=== PATIENT | male | born 1975 | race Caucasian/White ===

== ENCOUNTER → 2017-11-13 09:06 | Outpatient (CLI) | payer OTHER, SELFPAY ==
[2017-11-13 10:14] LABS: PSA,Total - Annual Screen 7.98 ng/mL (0.00-4.00)
== END ==
PROVIDERS: Visit Provider Urology
DX: Z12.5 Encounter for screening for malignant neoplasm of prostate (principal)
CPT/HCPCS: 36415; 84153; G0103

== ENCOUNTER → 2017-12-16 07:11 | Outpatient (CLI) | payer OTHER, SELFPAY ==
[2017-12-16 08:47] LABS: PSA,Total- Diagnostic 6.32 ng/mL (0.0-4.0)
== END ==
PROVIDERS: Visit Provider Urology
DX: R97.20 Elevated prostate specific antigen [PSA] (principal)
CPT/HCPCS: 36415; 84153

== ENCOUNTER → 2018-02-10 07:21 | Outpatient (CLI) | payer OTHER, SELFPAY ==
[2018-02-10 08:55] LABS: PSA,Total- Diagnostic 6.41 ng/mL (0.0-4.0)
== END ==
PROVIDERS: Visit Provider Urology
DX: R97.20 Elevated prostate specific antigen [PSA] (principal)
CPT/HCPCS: 36415; 84153

== ENCOUNTER → 2018-03-05 08:00 | Outpatient (CLI) | payer OTHER, SELFPAY ==
--- NOTE | 2018-03-05 | IMM_PTH ---
PATIENT: CHAITANYA LIZARRAGA LOC: [facility] U#:[id number] AGE/SX: 49/M ROOM: RE03/05/[address]: Dr. Mohan Sanders MD : 1975 BED: DIS: SPEC #: [id number] RECD: 03/07/18 12:34 STATUS: SHREYAS REDeborah #: [id number] ANNALISA: 03/05/18 00:[address]: Mohan Sanders DEPT: IMMUNOHISTOCHEMISTRY RECD BY: Pat Chacon ENTERED: 03/07/18 12:37 SP TYPE: IMMUNO OTHR DR: No Primary Care Phys Tissues: A - PROSTATE RIGHT B - PROSTATE RIGHT D - PROSTATE LEFT E - PROSTATE LEFT Procedures: 34BE12 (add) P40 (add) 34BE12 (initial) PHYSICIAN & INSTITUTION [place] [id number] SPECIMEN INFORMATION: Tissue Source: A - Right prostate apex, B ? Right prostate mid, D ? Left prostate apex, E ? Left prostate mid Clinical Info: Elevated PSA Specimen Number: [id number] A, B, D & E CPT code: 93178, 83153 x7 METHODOLOGY: Deparaffinized sections of prefer/formalin-fixed tissue or PAP/DQ stained slides are incubated with monoclonal/polyclonal antibodies/oligonucleotide probes. Localization is made via biotin free immunoperoxidase method. Appropriate controls are performed and reacted as expected. Results on target cell population are indicated in the following table: RESULTS: ANTIBODY / CLONE RESULT Block A P40 (BC28) negative 34BE12 (34BE12) negative Block B P40 (BC28) negative 34BE12 (34BE12) negative Block D P40 (BC28) positive 34BE12 (34BE12) positive Block E P40 (BC28) negative 34BE12 (34BE12) negative These tests were developed and their performance characteristics determined by [facility]. They may not have been cleared or approved by the [place]. Food and Drug Administration. The FDA has determined that such clearance or approval is not necessary. INTERPRETATION: A. Right prostate, apex, core biopsy: Focal atypical small acinar proliferation (KEVIN). B. Right prostate, mid, core biopsy: Focal atypical small acinar proliferation (KEVIN). D. Left prostate, apex, core biopsy: Focal high-grade prostatic intraepithelial neoplasia (HGPIN). E. Left prostate, mid, core biopsy: Focal atypical small acinar proliferation (KEVIN). SJ:yoli 03/08/18 Comment: A B & E - Atypical focus consists of only 2-3 glands. This case has been reviewed in consultation with Dr. Field who concurs with the above diagnosis.
--- NOTE | 2018-03-05 08:00 | PROSBIL_PTH ---
PATIENT: CHAITANYA LIZARRAGA LOC: [facility] U#:[id number] AGE/SX: 49/M ROOM: RE03/05/[address]: Dr. Mohan Sanders MD : 1975 BED: DIS: SPEC #: [id number] RECD: 03/06/18 11:15 STATUS: SHREYAS RUBEN #: [id number] ANNALISA: 03/05/18 08:[address]: Mohan Sanders DEPT: SURGICAL PATHOLOGY RECD BY: Chan Cramer ENTERED: 03/06/18 11:15 SP TYPE: PROST BX DAMIAN DR: [place] Primary Care Phys Tissues: A - PROSTATE RIGHT B - PROSTATE RIGHT C - PROSTATE RIGHT D - PROSTATE LEFT E - PROSTATE LEFT F - PROSTATE LEFT Procedures: PROSTATE BX HEADER OPERATION: Prostate biopsy PRE-OP DIAGNOSIS: Elevated PSA TISSUE SUBMITTED: A - Right apex, B - Right mid, C - Right base, D - Left apex, E - Left mid, F - Left base MICROSCOPIC DIAGNOSIS A. Right prostate, apex, core biopsy: Focal atypical small acinar proliferation (KEVIN). See comment. B. Right prostate, mid, core biopsy: Focal high-grade prostatic intraepithelial neoplasia (HGPIN). Focal atypical small acinar proliferation (KEVIN). Atrophy. See comment. C. Right prostate, base, core biopsy: Focal high-grade prostatic intraepithelial neoplasia (HGPIN). D. Left prostate, apex, core biopsy: Focal high-grade prostatic intraepithelial neoplasia (HGPIN). See comment. E. 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 See comment. F. Left prostate, base, core biopsy: Focal high-grade prostatic intraepithelial neoplasia (HGPIN). SJ:yoli 03/08/18 COMMENT A, B, D & E - Immunohistochemistry ([id number]) supports the above diagnosis. Case has been reviewed in consultation with Dr. Field who concurs with the above diagnosis. IDC:AM MICROSCOPIC DESCRIPTION Slides are reviewed. GROSS DESCRIPTION A - Received is one container designated prostate, right apex. The specimen consists of two elongated fragments of light jenkins-white soft tissue each measuring 1.5 cm in length and 0.1 cm in diameter. The specimen is totally submitted in one cassette. B - Received is one container designated prostate, right mid. The specimen consists of two elongated fragments of light jenkins-white soft tissue measuring 1.5 and 1.8 cm in length and 0.1 cm in diameter. The specimen is totally submitted in one cassette. C - Received is one container designated prostate, right base. The specimen consists of two elongated fragments of light jenkins-white soft tissue each measuring 1.5 cm in length and 0.1 cm in diameter. The specimen is totally submitted in one cassette. D - Received is one container designated prostate, left apex. The specimen consists of two elongated fragments of light jenkins-white soft tissue each measuring 1.1 cm in length and 0.1 cm in diameter. The specimen is totally submitted in one cassette. E - Received is one container designated prostate, left mid. The specimen consists of two elongated fragments of light jenkins-white soft tissue each measuring 1 cm in length and 0.1 cm in diameter. The specimen is totally submitted in one cassette. F - Received is one container designated prostate, left base. The specimen consists of two elongated fragments of light jenkins-white soft tissue measuring 1 and 1.5 cm in length and 0.1 cm in diameter. The specimen is totally submitted in one cassette. / SJ:rg 03/06/18 TC:5 CPT: 45006 x6
== END ==
PROVIDERS: Visit Provider Urology
DX: R97.20 Elevated prostate specific antigen [PSA] (principal)
CPT/HCPCS: 88305; 88341; 88342; G0416